=== PATIENT | female | born 1960 | race Caucasian/White ===

== ENCOUNTER 2017-01-07 20:17 | Emergency (ER) | payer OTHER ==
[~2017-01-07] VITALS: Ht 162.6 cm; Wt 63.5 kg
[~2017-01-07 20:17] MED LIST: ACYC400T PO; SIMV20TA6 PO
[2017-01-07] MEDS ORDERED: IBUPROFEN 600 MG TABLET PO ONE (21:00)
[2017-01-07] MEDS ORDERED: IBUPROFEN 600 MG TABLET ONE (21:00)
[2017-01-07 22:18] VITALS: BP 112/75
--- NOTE | 2017-01-07 22:18 | NUR ---
Patient discharged to home in stable conditon. Written and verbal after care instructions given. Patient verbalizes understanding of instructions.
== END 2017-01-07 22:18 | disposition home or self-care (01) ==
LOC: ER 20:20
DX: S93.505A Unspecified sprain of left lesser toe(s), initial encounter (principal); E78.00 Pure hypercholesterolemia, unspecified; F10.20 Alcohol dependence, uncomplicated; F17.200 Nicotine dependence, unspecified, uncomplicated; Z88.0 Allergy status to penicillin; X58.XXXA Exposure to other specified factors, initial encounter; Y93.9 Activity, unspecified; Y99.9 Unspecified external cause status; Y92.9 Unspecified place or not applicable
CPT/HCPCS: 73630; A4663

== ENCOUNTER 2017-02-20 15:22 | Emergency (ER) | payer OTHER ==
[~2017-02-20] VITALS: Ht 162.6 cm; Wt 65.8 kg
[2017-02-20 15:51] LABS: BASOPHILS % (AUTO) 0.8 % (0.0-2.0); EOSINOPHILS # (AUTO) 0.2 K/uL (0.0-0.7); EOSINOPHILS % (AUTO) 3.1 % (0.0-7.0); HEMATOCRIT 42.8 % (37-47); HEMOGLOBIN 14.5 G/DL (12.0-16.0); LYMPHOCYTES # (AUTO) 1.4 K/UL (0.8-4.8); MEAN CORPUSCULAR HEMOGLOBIN 29.6 UUG (27.0-31.0); MEAN CORPUSCULAR HGB CONC 34 g/dL (32.0-37.0); MEAN CORPUSCULAR VOLUME 87.3 FL (81.0-99.0); MONOCYTES # (AUTO) 0.4 K/UL (0.1-1.30); MONOCYTES % (AUTO) 7.3 % (0.0-11.0); NEUTROPHILS # (AUTO) 3.2 K/UL (1.8-8.9); NEUTROPHILS % (AUTO) 61.8 % (38.5-71.5); PLATELET COUNT (AUTO) 320 K/UL (150-450); WHITE BLOOD COUNT (AUTO) 5.2 K/UL (4.0-11.2)
[2017-02-20 15:57] LABS: CREATININE 0.6 mg/dL (0.6-1.3)
[2017-02-20 16:03] LABS: BILIRUBIN,DIRECT 0.1 mg/dL (0.0-0.2); BILIRUBIN,TOTAL 0.7 mg/dL (0.2-1.0); TOTAL PROTEIN, SERUM 7.3 g/dL (6.4-8.2)
[2017-02-20 16:48] LABS: *BILIRUBIN,URIN NEGATIVE (NEGATIVE); *BLOOD, URINE NEGATIVE (NEGATIVE); *CLARITY,URINE SLIGHTLY CLOUDY (CLEAR); *COLOR,URINE YELLOW (YELLOW); *KETONES,URINE NEGATIVE (NEGATIVE); *PROTEIN,URINE NEGATIVE (NEGATIVE); *UROBILINOGEN,URINE 0.2 E.U./dl (NORMAL); LEUKOCYTE ESTERASE ,URINE NEGATIVE (NEGATIVE); NITRITE, URINE NEGATIVE (NEGATIVE); PH,URINE 6.5 (5.0-8.0); UGLUCOSE NEGATIVE (NEGATIVE)
[2017-02-20 16:49] VITALS: BP 120/88
[2017-02-20 17:35] LABS: BACTERIA,URINE NONE SEEN /HPF (NONE SEEN); RBC,URINE NONE SEEN /HPF (0-3); SQUAMOUS EPITHELIAL CELL,UR FEW /HPF (NONE SEEN); WBC,URINE 0-3 /HPF (0-3)
== END 2017-02-20 16:49 | disposition home or self-care (01) ==
LOC: ER 15:25
DX: K29.70 Gastritis, unspecified, without bleeding (principal); E78.00 Pure hypercholesterolemia, unspecified; F10.20 Alcohol dependence, uncomplicated; F17.200 Nicotine dependence, unspecified, uncomplicated; Z88.0 Allergy status to penicillin
CPT/HCPCS: 36415; 83690; 85025; A4663

== ENCOUNTER 2017-07-08 19:02 | Emergency (ER) | payer OTHER ==
[~2017-07-08] VITALS: Ht 162.6 cm; Wt 63.5 kg
--- NOTE | 2017-07-08 21:26 | NUR ---
Patient discharged to home in stable conditon. Written and verbal after care instructions given. Patient verbalizes understanding of instructions.
== END 2017-07-08 21:27 | disposition home or self-care (01) ==
LOC: ER 19:03
DX: J32.9 Chronic sinusitis, unspecified (principal); J20.9 Acute bronchitis, unspecified; E78.00 Pure hypercholesterolemia, unspecified; Z90.49 Acquired absence of other specified parts of digestive tract; F17.200 Nicotine dependence, unspecified, uncomplicated; Z88.0 Allergy status to penicillin
CPT/HCPCS: A4663

== ENCOUNTER 2017-07-13 19:48 | Emergency (ER) | payer OTHER ==
[~2017-07-13] VITALS: Ht 162.6 cm; Wt 65.8 kg
[2017-07-13] MEDS ORDERED: predniSONE 20 MG TABLET PO ONE (23:30)
[2017-07-13] MEDS ORDERED: predniSONE 10 MG TABLET ONE (23:41)
[2017-07-13] MEDS ORDERED: predniSONE 50 MG TABLET ONE (23:41)
--- NOTE | 2017-07-14 | NUR ---
Patient discharged to home in stable conditon. Written and verbal after care instructions given. Patient verbalizes understanding of instructions.
== END 2017-07-14 00:01 | disposition home or self-care (01) ==
LOC: ER 19:50
DX: J45.909 Unspecified asthma, uncomplicated (principal); R04.2 Hemoptysis; E78.00 Pure hypercholesterolemia, unspecified; Z88.0 Allergy status to penicillin; F17.200 Nicotine dependence, unspecified, uncomplicated; Z90.49 Acquired absence of other specified parts of digestive tract
CPT/HCPCS: 71010; 99283; A4663; J7512 ×2

== ENCOUNTER 2018-03-07 21:21 | Emergency (ER) | payer OTHER ==
[~2018-03-07] VITALS: Ht 162.6 cm; Wt 65.8 kg
--- NOTE | 2018-03-07 22:00 | NUR ---
DR. LINK AT BEDSIDE FOR MSE.
--- NOTE | 2018-03-07 22:16 | NUR ---
Patient discharged to home in stable conditon. Written and verbal after care instructions given. Patient verbalizes understanding of instructions. Pt ambulated out of ER in steady gait. All belongings with pt. VSS. No acute distress noted.
[2018-03-07 22:17] VITALS: BP 105/76
== END 2018-03-07 22:18 | disposition home or self-care (01) ==
LOC: ER 21:23
DX: K64.9 Unspecified hemorrhoids (principal); E78.00 Pure hypercholesterolemia, unspecified; F17.210 Nicotine dependence, cigarettes, uncomplicated; Z90.49 Acquired absence of other specified parts of digestive tract; Z88.0 Allergy status to penicillin; Z79.899 Other long term (current) drug therapy
CPT/HCPCS: 99282; A4663

== ENCOUNTER 2018-04-04 19:28 | Emergency (ER) | payer OTHER ==
[~2018-04-04] VITALS: Ht 162.6 cm; Wt 67.1 kg
[2018-04-04] MEDS ORDERED: KETOROLAC TROMETHAMINE 30 MG INJ IM ONE (20:15)
[2018-04-04] MEDS ORDERED: KETOROLAC TROMETHAMINE 30 MG INJ ONE (20:35)
--- NOTE | 2018-04-04 21:36 | NUR ---
Patient discharged to home in stable conditon. Patient reported being free of knee pain prior to discharge. Written and verbal after care instructions given. Patient verbalizes understanding of instructions. Patient able to ambulate unassisted with a steady gait. Patient left with all personal belongings.
[2018-04-04 21:45] VITALS: BP 108/68
== END 2018-04-04 21:36 | disposition home or self-care (01) ==
LOC: ER 19:29
DX: M25.562 Pain in left knee (principal); E78.00 Pure hypercholesterolemia, unspecified; F17.200 Nicotine dependence, unspecified, uncomplicated; Z90.89 Acquired absence of other organs; Z88.0 Allergy status to penicillin; Z79.899 Other long term (current) drug therapy
CPT/HCPCS: 73564; 96372; 99284; 99406; A4663; J1885

== ENCOUNTER 2018-04-11 20:29 | Emergency (ER) | payer OTHER ==
[~2018-04-11] VITALS: Ht 162.6 cm; Wt 65.8 kg
[2018-04-11] MEDS ORDERED: CLINDAMYCIN HCL 300 MG CAPSULE PO (20:35)
[2018-04-11] MEDS ORDERED: IBU 800 MG TABLET PO (20:36)
--- NOTE | 2018-04-11 20:47 | NUR ---
DR FARIBA ADAMS MD AT BEDSIDE FOR MSE.
--- NOTE | 2018-04-11 21:06 | NUR ---
Patient discharged to home in stable conditon. Written and verbal after care instructions given. Patient verbalizes understanding of instructions. Pt ambulated from ER w/ steady gait. No distress noted. Pt took all personal belongings.
[2018-04-11 21:08] VITALS: BP 114/58
== END 2018-04-11 21:09 | disposition home or self-care (01) ==
LOC: ER 20:32
DX: B35.4 Tinea corporis (principal); E78.00 Pure hypercholesterolemia, unspecified; Z90.49 Acquired absence of other specified parts of digestive tract; Z88.0 Allergy status to penicillin; Z79.899 Other long term (current) drug therapy
CPT/HCPCS: 99283; A4663

== ENCOUNTER 2018-04-30 18:43 | Emergency (ER) | payer OTHER ==
[~2018-04-30] VITALS: Ht 162.6 cm; Wt 65.8 kg
[~2018-04-30 18:43] MED LIST changes: +CLINDAMYCIN HCL 300 MG CAPSULE PO; +IBU 800 MG TABLET PO
[2018-04-30 20:46] VITALS: BP 122/68
== END 2018-04-30 20:47 | disposition home or self-care (01) ==
LOC: ER 18:46
DX: M25.562 Pain in left knee (principal); E78.00 Pure hypercholesterolemia, unspecified; F17.200 Nicotine dependence, unspecified, uncomplicated; Z88.0 Allergy status to penicillin; Z90.49 Acquired absence of other specified parts of digestive tract
CPT/HCPCS: 73564; 99284; A4663

== ENCOUNTER 2018-06-13 20:14 | Emergency (ER) | payer OTHER ==
[~2018-06-13] VITALS: Ht 162.6 cm; Wt 65.8 kg
--- NOTE | 2018-06-13 20:57 | NUR ---
Dr. Hahn at bedside for MSE.
[2018-06-13 21:14] VITALS: BP 106/73
== END 2018-06-13 21:14 | disposition home or self-care (01) ==
LOC: ER 20:14
DX: R59.1 Generalized enlarged lymph nodes (principal); E78.00 Pure hypercholesterolemia, unspecified; F17.200 Nicotine dependence, unspecified, uncomplicated; Z90.49 Acquired absence of other specified parts of digestive tract; Z88.0 Allergy status to penicillin
CPT/HCPCS: 99281; A4663

== ENCOUNTER 2018-11-05 19:17 | Emergency (ER) | payer OTHER ==
[~2018-11-05] VITALS: Ht 162.6 cm; Wt 65.8 kg
--- NOTE | 2018-11-05 19:33 | NUR ---
Pt. 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 CMS intact, no inflammation noted, also c/o 1 cm circular mole on R upper chest,
--- NOTE | 2018-11-05 19:37 | NUR ---
Dr. Oneill at bedside for MSE
--- NOTE | 2018-11-05 19:41 | NUR ---
Rad. tech at bedside,
--- NOTE | 2018-11-05 19:41 | NUR ---
Called Radiology for Xray foot,
--- NOTE | 2018-11-05 20:28 | NUR ---
Patient discharged to home in stable conditon. Written and verbal after care instructions given. Patient verbalizes understanding of instructions.
== END 2018-11-05 20:30 | disposition home or self-care (01) ==
LOC: ER 19:19
DX: S93.601A Unspecified sprain of right foot, initial encounter (principal); L98.9 Disorder of the skin and subcutaneous tissue, unspecified; E78.00 Pure hypercholesterolemia, unspecified; F17.200 Nicotine dependence, unspecified, uncomplicated; Z90.49 Acquired absence of other specified parts of digestive tract; Z88.0 Allergy status to penicillin; Z79.2 Long term (current) use of antibiotics; Z79.899 Other long term (current) drug therapy; X58.XXXA Exposure to other specified factors, initial encounter; Y93.89 Activity, other specified; Y92.89 Other specified places as the place of occurrence of the external cause; Y99.8 Other external cause status
CPT/HCPCS: 73630; A4663

== ENCOUNTER 2018-12-20 17:08 | Emergency (ER) | payer OTHER ==
[~2018-12-20] VITALS: Ht 162.6 cm; Wt 65.8 kg
--- NOTE | 2018-12-20 17:27 | NUR ---
BRYAN GRAF AT BEDSIDE FOR MSE.
--- NOTE | 2018-12-20 17:28 | NUR ---
PT A/OX4, PRESENTS TO THE ER C/O SOB THAT STARTED YESTERDAY BUT HAS BEEN PROGRESSIVELY GETTING WORSE. VSS. LUNG SOUNDS CLEAR IN ALL LUNG [place]. PT DENIES C/P, N/V/D, DIZZINESS, HEADACHE.
[2018-12-20] MEDS ORDERED: ALBUTEROL SULFATE 2.5 MG/3 ML NEBU NEB ONE (17:30)
--- NOTE | 2018-12-20 17:35 | NUR ---
RN ENT AT BEDSIDE.
[2018-12-20] MEDS ORDERED: ALBUTEROL SULFATE 2.5 MG/3 ML NEBU ONE (17:37)
[2018-12-20 17:44] LABS: BASOPHILS % (AUTO) 0.4 % (0.0-2.0); EOSINOPHILS % (AUTO) 0.7 % (0.0-7.0); HEMATOCRIT 40.1 % (31.2-41.9); HEMOGLOBIN 13.6 g/dL (10.9-14.3); LYMPHOCYTES # (AUTO) 0.6 K/uL (20.0-40.0); LYMPHOCYTES % (AUTO) 12.6 % (20.5-51.5); MEAN CORPUSCULAR HEMOGLOBIN 30.1 uug (24.7-32.8); MEAN CORPUSCULAR HGB CONC 34 g/dL (32.3-35.6); MEAN CORPUSCULAR VOLUME 88.9 fL (75.5-95.3); MONOCYTES # (AUTO) 0.6 K/uL (2.0-10.0); MONOCYTES % (AUTO) 12.3 % (0.0-11.0); NEUTROPHILS # (AUTO) 3.7 K/uL (1.8-8.9); PLATELET COUNT (AUTO) 258 K/uL (179-408); RED BLOOD CELL COUNT(AUTO) 4.52 MIL/uL (3.63-4.92)
[2018-12-20 18:05] LABS: CREATININE 0.7 mg/dL (0.6-1.3); POTASSIUM 3.6 mmol/L (3.5-5.1)
[2018-12-20 18:17] LABS: BILIRUBIN,DIRECT 0.2 mg/dL (0.0-0.2); BILIRUBIN,TOTAL 0.7 mg/dL (0.2-1.0); TOTAL PROTEIN, SERUM 6.7 g/dL (6.4-8.2)
[2018-12-20] MEDS ORDERED: IBUP200C5 PO (18:39)
--- NOTE | 2018-12-20 18:45 | NUR ---
Patient discharged to home in stable conditon. Written and verbal after care instructions given. Patient verbalizes understanding of instructions. PT D/C W/ PRESCRIPTIONS. ALL BELONGINGS W/ PT. PT SELF-AMBULATED W/O DIFFICULTY.
[2018-12-20 18:47] VITALS: BP 112/60
== END 2018-12-20 18:47 | disposition home or self-care (01) ==
LOC: ER 17:08
DX: J20.9 Acute bronchitis, unspecified (principal); E78.00 Pure hypercholesterolemia, unspecified; F17.200 Nicotine dependence, unspecified, uncomplicated; Z90.49 Acquired absence of other specified parts of digestive tract; Z88.0 Allergy status to penicillin; Z79.1 Long term (current) use of non-steroidal anti-inflammatories (NSAID); Z79.899 Other long term (current) drug therapy
CPT/HCPCS: 36415; 70030-TC; 71045; 85025; 93005; A4663

== ENCOUNTER 2019-04-12 23:14 | Emergency (ER) | payer OTHER ==
[~2019-04-12] VITALS: Ht 162.6 cm; Wt 61.2 kg
[~2019-04-12 23:14] MED LIST changes: -ACYC400T PO; -CLINDAMYCIN HCL 300 MG CAPSULE PO; -IBU 800 MG TABLET PO; +IBUP200C5 PO
--- NOTE | 2019-04-12 23:37 | NUR ---
Dr. Del Rosario at bedside for MSE.
[2019-04-12] MEDS ORDERED: IBUPROFEN 600 MG TABLET PO ONE (23:45)
[2019-04-12] MEDS ORDERED: DEXAMETHASONE 4 MG TABLET PO ONE (23:45)
[2019-04-12] MEDS ORDERED: DEXAMETHASONE 4 MG TABLET ONE (23:51)
[2019-04-12] MEDS ORDERED: IBUPROFEN 600 MG TABLET ONE (23:51)
--- NOTE | 2019-04-12 23:51 | NUR ---
Patient discharged to home in stable conditon. Written and verbal after care instructions given. Patient verbalizes understanding of instructions. Pt ambulated out of ER with steady gait, no acute signs of distress, VSS, all belongings taken.
[2019-04-12 23:53] VITALS: BP 105/72
== END 2019-04-12 23:53 | disposition home or self-care (01) ==
LOC: ER 23:14
DX: M54.12 Radiculopathy, cervical region (principal); E78.00 Pure hypercholesterolemia, unspecified; F17.200 Nicotine dependence, unspecified, uncomplicated; Z90.49 Acquired absence of other specified parts of digestive tract; Z88.0 Allergy status to penicillin; Z79.1 Long term (current) use of non-steroidal anti-inflammatories (NSAID); Z79.899 Other long term (current) drug therapy
CPT/HCPCS: 99283; J8540; A4663

== ENCOUNTER 2020-05-07 21:09 | Emergency (ER) | payer OTHER ==
[~2020-05-07] VITALS: Ht 165.1 cm; Wt 62.6 kg
[~2020-05-07 21:09] MED LIST changes: +SIMV-46 PO; -SIMV20TA6 PO
--- NOTE | 2020-05-07 21:28 | NUR ---
at bedside for MSE
[2020-05-07] MEDS ORDERED: PHENAZOPYRIDINE HCL 100 MG TABLET PO ONE (21:30)
[2020-05-07 21:35] LABS: *BILIRUBIN,URIN NEGATIVE (NEGATIVE); *BLOOD, URINE NEGATIVE (NEGATIVE); *CLARITY,URINE CLEAR (CLEAR); *COLOR,URINE YELLOW (YELLOW); *KETONES,URINE NEGATIVE (NEGATIVE); *UROBILINOGEN,URINE 0.2 E.U./dl (NORMAL); LEUKOCYTE ESTERASE ,URINE NEGATIVE (NEGATIVE); NITRITE, URINE NEGATIVE (NEGATIVE); PH,URINE 5.5 (5.0-8.0); UGLUCOSE NEGATIVE (NEGATIVE)
[2020-05-07] MEDS ORDERED: PHENAZOPYRIDINE HCL 100 MG TABLET ONE (21:40)
--- NOTE | 2020-05-07 21:52 | NUR ---
Patient discharged to home in stable condition. Ambulated with steady gait. Rx given, instructed to follow up with PCP. Patient took all belongings, no signs of distress noted. Written and verbal after care instructions given. Patient verbalizes understanding of instructions. Stressed follow up or return to ER for worsening s/s.
[2020-05-07 21:58] VITALS: BP 116/81
== END 2020-05-07 21:50 | disposition home or self-care (01) ==
LOC: ER 21:12
DX: R30.0 Dysuria (principal); M72.2 Plantar fascial fibromatosis; E78.00 Pure hypercholesterolemia, unspecified; Z79.899 Other long term (current) drug therapy; Z98.49 Cataract extraction status, unspecified eye
CPT/HCPCS: 87086; A4663

== ENCOUNTER 2020-12-18 23:26 | Emergency (ER) | payer OTHER ==
[~2020-12-18] VITALS: Ht 162.6 cm; Wt 56.7 kg
[2020-12-19] MEDS: CLINDAMYCIN HCL 150 MG CAPSULE PO ONE (00:07)
--- NOTE | 2020-12-19 00:08 | NUR ---
pulled keflex 500mg from pyxis to administer to patient per Dr. Olea verbal order. cancelled order. to give clindamycin 300mg po instead. wasted keflex 500mg in pyxis
[2020-12-19] MEDS ORDERED: CEphaleXIN 500 MG CAPSULE ONE (00:09)
[2020-12-19] MEDS ORDERED: CLINDAMYCIN HCL 300 MG CAPSULE ONE (00:11)
[2020-12-19] MEDS ORDERED: SULF1TAB48 PO (00:12)
[2020-12-19 00:16] VITALS: BP 135/77
--- NOTE | 2020-12-19 00:16 | NUR ---
Patient discharged to home in stable condition. Written and verbal after care instructions given. Patient verbalizes understanding of instructions. Stressed follow up or return to ER for worsening s/s.
== END 2020-12-19 00:17 | disposition home or self-care (01) ==
LOC: ER 23:27
DX: L03.211 Cellulitis of face (principal); E78.00 Pure hypercholesterolemia, unspecified; R03.0 Elevated blood-pressure reading, without diagnosis of hypertension; Z88.0 Allergy status to penicillin

== ENCOUNTER 2021-09-27 17:51 | Emergency (ER) | payer OTHER ==
[~2021-09-27] VITALS: Ht 162.6 cm; Wt 54.4 kg
[~2021-09-27 17:51] MED LIST changes: +SULF1TAB48 PO
[2021-09-27 20:33] LABS: HEMATOCRIT 44.1 % (31.2-41.9); MEAN CORPUSCULAR HEMOGLOBIN 29.9 uug (24.7-32.8); MEAN CORPUSCULAR VOLUME 89.4 fL (75.5-95.3); PLATELET COUNT (AUTO) 359 K/uL (179-408)
[2021-09-27 21:36] LABS: CREATININE 0.6 mg/dL (0.6-1.3); POTASSIUM 3.8 mmol/L (3.5-5.1)
[2021-09-27 21:41] LABS: BILIRUBIN,DIRECT 0.1 mg/dL (0.0-0.2); BILIRUBIN,TOTAL 0.4 mg/dL (0.2-1.0); TOTAL PROTEIN, SERUM 7.7 g/dL (6.4-8.2)
--- NOTE | 2021-09-28 01:35 | NUR ---
Pt not in waiting room.
== END 2021-09-28 01:37 | disposition left against medical advice (07) ==
LOC: ER 17:56
DX: R07.9 Chest pain, unspecified (principal); E78.00 Pure hypercholesterolemia, unspecified; Z88.0 Allergy status to penicillin; F17.200 Nicotine dependence, unspecified, uncomplicated
CPT/HCPCS: 36415; 70030-TC; 71045; 85025; 93005; A4663

== ENCOUNTER 2022-05-20 21:49 | Emergency (ER) | payer SELFPAY ==
[~2022-05-20] VITALS: Ht 160 cm; Wt 53.5 kg
--- NOTE | 2022-05-20 22:00 | NUR ---
AFTER BEING TRIAGED, PATIENT WAS PLACED BACK IN THE WAITING ROOM DUE TO NO BEDS AVAILABLE IN THE ER AT THIS TIME.
--- NOTE | 2022-05-21 00:04 | NUR ---
PATIENT WAS CALLED TO BE PLACED IN ROOM BUT WAS NOT PRESENT IN THE WAITING ROOM OR OUTSIDE OF ER.
--- NOTE | 2022-05-21 00:34 | NUR ---
Patient was called to be placed in room but was not present in the waiting room or outside of ER. PATIENT WAS NOT SEEN BY ERMD BUT WAS TRIAGED.
== END 2022-05-21 00:37 | disposition left against medical advice (07) ==
LOC: ER 21:49
DX: Z53.21 Procedure and treatment not carried out due to patient leaving prior to being seen by health care provider (principal)

== ENCOUNTER 2022-05-30 22:18 | Emergency (ER) | payer OTHER ==
[~2022-05-30] VITALS: Ht 160 cm; Wt 53.5 kg
--- NOTE | 2022-05-30 22:41 | NUR ---
Patient walked to ER with steady gait, NAD noted
--- NOTE | 2022-05-30 22:45 | NUR ---
Dr Alves at bedside, MSE in progress
[2022-05-31 00:25] LABS: CREATININE 0.8 mg/dL (0.6-1.3); POTASSIUM 3.8 mmol/L (3.5-5.1)
[2022-05-31 00:26] LABS: HEMATOCRIT 39.4 % (31.2-41.9); MEAN CORPUSCULAR HEMOGLOBIN 30.8 uug (24.7-32.8); MEAN CORPUSCULAR VOLUME 91.8 fL (75.5-95.3); PLATELET COUNT (AUTO) 302 K/uL (179-408)
--- NOTE | 2022-05-31 00:39 | NUR ---
Patient discharged to home in stable condition. Written and verbal after care instructions given. Patient verbalizes understanding of instructions. Stressed follow up or return to ER for worsening s/s. Patient is a/ox4, NAD noted. Patient is able to walk with steady gait
[2022-05-31 00:40] VITALS: BP 122/64
== END 2022-05-31 00:41 | disposition home or self-care (01) ==
LOC: ER 22:18
DX: R62.7 Adult failure to thrive (principal); Z68.20 Body mass index [BMI] 20.0-20.9, adult; F17.200 Nicotine dependence, unspecified, uncomplicated; Z88.0 Allergy status to penicillin; E78.00 Pure hypercholesterolemia, unspecified; Z79.899 Other long term (current) drug therapy
CPT/HCPCS: 36415; 85025; 85730; A4663

== ENCOUNTER 2023-02-12 21:43 | Emergency (ER) | payer OTHER ==
[~2023-02-12] VITALS: Ht 162.6 cm; Wt 54.4 kg
--- NOTE | 2023-02-12 22:10 | NUR ---
Pt is noted in bed responsive as she came from home C/O Lower EXT. pain due to S/P Fall at home. Pt care continue as awaits MD orders.
[2023-02-12] MEDS ORDERED: IBUPROFEN 600 MG TABLET PO ONE (22:15)
[2023-02-12] MEDS ORDERED: IBUPROFEN 600 MG TABLET ONE (22:17)
--- NOTE | 2023-02-12 22:23 | NUR ---
Pt care continue as 600mg of Motrain PO giveb as ordered and X-Ray is done as well. Pt care continue.
[2023-02-12 22:55] VITALS: BP 118/67
--- NOTE | 2023-02-12 22:55 | NUR ---
Patient discharged to home in stable condition. Written and verbal after care instructions given. Patient verbalizes understanding of instructions. Stressed follow up or return to ER for worsening s/s. Patient is a/ox4, NAD noted. patient ambulated with steady gait
== END 2023-02-12 22:56 | disposition home or self-care (01) ==
LOC: ER 21:44
DX: M79.671 Pain in right foot (principal); E78.00 Pure hypercholesterolemia, unspecified; F17.210 Nicotine dependence, cigarettes, uncomplicated; Z90.49 Acquired absence of other specified parts of digestive tract; Z88.0 Allergy status to penicillin; Z79.1 Long term (current) use of non-steroidal anti-inflammatories (NSAID); Z79.899 Other long term (current) drug therapy; X50.1XXA Overexertion from prolonged static or awkward postures, initial encounter; Y93.89 Activity, other specified; Y92.89 Other specified places as the place of occurrence of the external cause; Y99.8 Other external cause status
CPT/HCPCS: 73610; 73630; A4663

== ENCOUNTER 2023-05-14 18:11 | Emergency (ER) | payer OTHER ==
[~2023-05-14] VITALS: Ht 162.6 cm; Wt 54.4 kg
[2023-05-14] MEDS ORDERED: HYDR25SU13 RC (18:39)
[2023-05-14] MEDS ORDERED: DOCU-141 PO (18:39)
[2023-05-14 18:49] VITALS: BP 122/69; O2SAT 99
== END 2023-05-14 18:50 | disposition home or self-care (01) ==
LOC: ER 18:13
DX: K64.4 Residual hemorrhoidal skin tags (principal); E78.00 Pure hypercholesterolemia, unspecified; F17.210 Nicotine dependence, cigarettes, uncomplicated; Z90.49 Acquired absence of other specified parts of digestive tract; Z79.1 Long term (current) use of non-steroidal anti-inflammatories (NSAID); Z79.899 Other long term (current) drug therapy
CPT/HCPCS: A4663

== ENCOUNTER 2023-07-18 00:38 | Emergency (ER) | payer OTHER ==
[~2023-07-18] VITALS: Ht 162.6 cm; Wt 54.4 kg
[~2023-07-18 00:38] MED LIST changes: +DOCU-141 PO; +HYDR25SU13 RC
[2023-07-18 01:18] LABS: *BILIRUBIN,URIN NEGATIVE (NEGATIVE); *BLOOD, URINE NEGATIVE (NEGATIVE); *CLARITY,URINE SLIGHTLY CLOUDY (CLEAR); *COLOR,URINE YELLOW (YELLOW); *KETONES,URINE NEGATIVE (NEGATIVE); *PROTEIN,URINE NEGATIVE (NEGATIVE); *UROBILINOGEN,URINE 0.2 E.U./dl (NORMAL); LEUKOCYTE ESTERASE ,URINE TRACE (NEGATIVE); NITRITE, URINE NEGATIVE (NEGATIVE); UGLUCOSE NEGATIVE (NEGATIVE)
[2023-07-18 01:21] LABS: BASOPHILS % (AUTO) 0.8 % (0.0-2.0); EOSINOPHILS # (AUTO) 0.1 K/uL (0.0-0.7); EOSINOPHILS % (AUTO) 3.3 % (0.0-7.0); HEMOGLOBIN 14.4 g/dL (10.9-14.3); LYMPHOCYTES # (AUTO) 1.5 K/uL (0.8-4.8); MEAN CORPUSCULAR HEMOGLOBIN 31.4 uug (24.7-32.8); MEAN CORPUSCULAR HGB CONC 34 g/dL (32.3-35.6); MEAN CORPUSCULAR VOLUME 93.6 fL (75.5-95.3); MONOCYTES # (AUTO) 0.4 K/uL (0.1-1.30); MONOCYTES % (AUTO) 9.4 % (0.0-11.0); NEUTROPHILS # (AUTO) 2.2 K/uL (1.8-8.9); NEUTROPHILS % (AUTO) 51.5 % (38.5-71.5); PLATELET COUNT (AUTO) 308 K/uL (179-408); RED BLOOD CELL COUNT(AUTO) 4.59 MIL/uL (3.63-4.92); RED CELL DISTRIBUTION WIDTH 14.1 % (12.3-17.7); WHITE BLOOD COUNT (AUTO) 4.3 K/uL (3.8-11.8)
[2023-07-18 01:31] LABS: CALCIUM 9.8 mg/dL (8.5-10.1); CREATININE 0.7 mg/dL (0.6-1.3); POTASSIUM 3.9 mmol/L (3.5-5.1)
[2023-07-18 01:34] LABS: DIFFERENTIAL COMMENT 1
[2023-07-18 01:36] LABS: ALBUMIN 3.5 g/dL (3.4-5.0); BILIRUBIN,DIRECT 0.1 mg/dL (0.0-0.2); BILIRUBIN,TOTAL 0.4 mg/dL (0.2-1.0); TOTAL PROTEIN, SERUM 7.3 g/dL (6.4-8.2)
[2023-07-18 02:08] LABS: BACTERIA,URINE MODERATE /HPF (NONE SEEN); RBC,URINE NONE SEEN /HPF (0-3); SQUAMOUS EPITHELIAL CELL,UR FEW /HPF (NONE SEEN)
[2023-07-18 02:09] LABS: URINE AMORPHOUS URATE MANY /HPF
[2023-07-18] MEDS ORDERED: NITR100C11 PO (02:50)
[2023-07-18 02:58] VITALS: BP 122/88; TEMP 97.5; O2SAT 100
== END 2023-07-18 02:58 | disposition home or self-care (01) ==
LOC: ER 00:38
DX: R59.0 Localized enlarged lymph nodes (principal); E78.5 Hyperlipidemia, unspecified; F17.210 Nicotine dependence, cigarettes, uncomplicated; Z90.49 Acquired absence of other specified parts of digestive tract; Z88.0 Allergy status to penicillin; Z79.1 Long term (current) use of non-steroidal anti-inflammatories (NSAID); Z79.899 Other long term (current) drug therapy
CPT/HCPCS: 36415; 85025; A4606; A4663

== ENCOUNTER 2025-02-23 16:19 | Emergency (ER) | payer OTHER ==
[~2025-02-23] VITALS: Ht 157.5 cm; Wt 62.1 kg
[~2025-02-23 16:19] MED LIST changes: +NITR100C11 PO
[2025-02-23] MEDS ORDERED: CALC500T53 PO (16:35)
[2025-02-23] MEDS ORDERED: CHOL2000 PO (16:35)
[2025-02-23] MEDS ORDERED: BUPR150T10 PO (16:35)
[2025-02-23] MEDS ORDERED: ATOR10TA PO (16:35)
[2025-02-23] MEDS ORDERED: ALPR0.5T8 PO (17:09)
[2025-02-23 17:30] VITALS: BP 137/78; TEMP 97.9; O2SAT 99
== END 2025-02-23 17:15 | disposition home or self-care (01) ==
LOC: ER 16:28
DX: F43.0 Acute stress reaction (principal); E78.00 Pure hypercholesterolemia, unspecified; R00.0 Tachycardia, unspecified; F17.210 Nicotine dependence, cigarettes, uncomplicated; Z79.899 Other long term (current) drug therapy; Z88.0 Allergy status to penicillin; Z88.7 Allergy status to serum and vaccine; Z90.49 Acquired absence of other specified parts of digestive tract; Z60.2 Problems related to living alone
CPT/HCPCS: A4606; A4663